=== PATIENT | male | born 1955 | race Caucasian/White ===

== ENCOUNTER 2018-09-16 07:03 | Day surgery (SDC) | payer MEDICARE, OTHER ==
[~2018-09-16] VITALS: Ht 177.8 cm; Wt 103.9 kg
[~2018-09-16 07:03] MED LIST: ALLOPURINOL100 MG PO; ATORVASTATIN CA10 MG PO; FAMOTIDINE40 MG PO; FLOMAX0.4 MG PO; LEVOTHYROXINE75 MCG PO; OXYCODONE HCL5 MG PO
[2018-09-16] MEDS ORDERED: ASPIR 8181 MG PO (07:21)
--- NOTE | 2018-09-16 09:03 | NUR ---
09/16/18 0903 Obdulia Vigil 0855 PT ARRIVED IN PACU SLEEPY WITH NO C/O'S. ABD SOFT.
--- NOTE | 2018-09-17 08:14 | OR ---
[facility] [address], [place] [address] Signed DATE OF OPERATION: 09/16/2018 SURGEON: Domingo Mckay MD PREOPERATIVE DIAGNOSES: 1. Gastroesophageal reflux disease. 2. Heartburn. 3. Esophageal dysphagia. 4. Screening. POSTOPERATIVE DIAGNOSES: 1. Reyu-jz-rahaiplk gastroduodenitis. 2. Small to moderate-sized hiatal hernia. 3. Mild distal esophagitis. 4. Unremarkable colonoscopy. PROCEDURES: 1. Esophagogastroduodenoscopy with CLOtest and biopsies of the pyloric bulb antrum and gastroesophageal junction. 2. Colonoscopy without biopsy. ESTIMATED BLOOD LOSS: None. INDICATIONS: Cherry is a 63-year-old gentleman, asked to see me for both upper and lower endoscopy. He has had trouble with acid reflux and heartburn. He has talked about mild esophageal dysphagia. He said bread in particular gives him trouble. He likes to drink a few glasses of gin every night, but he quit chewing snuff and smoking tobacco a number of years ago. He said he takes Rolaids about once a day. He tells me he has never had a screening colonoscopy. He has no lower GI complaints. He has no family history of colon cancer or polyps. In the office, I gave him pamphlets on both upper and lower endoscopy. We looked at those together along with the risks including, but not limited to gas bloating, crampy abdominal pain, bleeding, perforation, requiring surgery, and missed diagnosis. He also understands the need for IV conscious sedation. He expressed understanding and wished to proceed. DESCRIPTION OF PROCEDURE: Cherry was taken into our endoscopy suite and placed in the supine semi-recumbent position. The posterior oropharynx was anesthetized with lidocaine spray. A bite block Electronically Signed By: DOMINGO MCKAY MD 09/17/18 0814 PATIENT NAME: CHERRY PATTERSON OPERATIVE REPORT DATE OF : 51 REPORT #: [id number] PHYSICIAN: DOMINGO MCKAY MD PCP: JAVAN SINGLETON MD REPORT IS CONFIDENTIAL AND NOT TO BE RELEASED WITHOUT AUTHORIZATION [facility] [address], [place] [address] Signed was utilized for the case. He was given a total of 7 mg of Versed and 150 mcg of fentanyl to cover the both cases. The adult gastroscope had been introduced and advanced out into the third portion of the duodenum under direct visualization of camera without difficulty. The duodenum was unremarkable. However, the pyloric bulb in the stomach showed [id number] patchy erythematous changes consistent with inflammation. We saw no ulcerations in the bulb of the stomach. We took biopsies of the pyloric bulb and the stomach for pathologic review. We took a biopsy of the antrum for CLOtest. Upon retroflexion of scope, he does have a small to moderate-sized hiatal hernia. No gastric or esophageal varices. No Veronica-Arrington tear. No Laurent ulcer. The scope was withdrawn up to the GE junction, which was compliant without stricture. However, he does have fmhk-vp-[id number] disruption to his Z-line consistent with mild distal esophagitis. No obvious Martinez mucosa. We took several biopsies along the Z-line for pathologic review. The middle and upper esophagus were unremarkable. After this, the gas was suctioned out. The gastroscope removed. Cherry tolerated the procedure quite well. Cherry was then rotated into the left lateral decubitus position. He was maintained on IV sedation with Versed and fentanyl. A digital rectal exam was performed, and he does have some induration to the prostate. No obvious dominant nodule. The adult colonoscope was introduced and advanced all around into the cecum under direct visualization camera without difficulty. He had just a little bit of liquid bilious stool. That was suctioned out. The scope was slowly withdrawn. We found no pathology throughout the entire colon or rectum. He has very minimal internal hemorrhoid tissue. After this, the gas was suctioned out and colonoscope removed. Cherry tolerated the lower endoscopy quite well. RECOMMENDATIONS: Cherry will follow up my office in 7 to 14 days to review his results. Domingo Mckay MD ALB/MODL /[id number] cc: Domingo Mckay MD Electronically Signed By: DOMINGO MCKAY MD 09/17/18 0814 PATIENT NAME: CHERRY PATTERSON OPERATIVE REPORT DATE OF : 51 REPORT #: [id number] PHYSICIAN: DOMINGO MCKAY MD PCP: JAVAN SINGLETON MD REPORT IS CONFIDENTIAL AND NOT TO BE RELEASED WITHOUT AUTHORIZATION [address] [address] Signed Javan Singleton MD Copies: DOMINGO MCKAY MD, MALCOLM MD ~ Electronically Signed By: DOMINGO MCKAY MD 09/17/18 0814 PATIENT NAME: CHERRY PATTERSON OPERATIVE REPORT DATE OF : 51 REPORT #: [id number] PHYSICIAN: DOMINGO MCKAY MD PCP: JAVAN SINGLETON MD REPORT IS CONFIDENTIAL AND NOT TO BE RELEASED WITHOUT AUTHORIZATION
== END 2018-09-16 09:30 | disposition home or self-care (01) ==
LOC: OPS 07:03 → DS 07:03 → OPS 08:15
PROVIDERS: Colon & Rectal Surgery
PROC: 0DB78ZX Excision of Stomach, Pylorus, Via Natural or Artificial Opening Endoscopic, Diagnostic (ICD-10-PCS; 2018-09-16)
PROC: 0DB48ZX Excision of Esophagogastric Junction, Via Natural or Artificial Opening Endoscopic, Diagnostic (ICD-10-PCS; 2018-09-16)
PROC: 0DJD8ZZ Inspection of Lower Intestinal Tract, Via Natural or Artificial Opening Endoscopic (ICD-10-PCS; principal; 2018-09-16 08:15)
PROC: 0DB98ZX Excision of Duodenum, Via Natural or Artificial Opening Endoscopic, Diagnostic (ICD-10-PCS; 2018-09-16 08:15)
DX: Z12.11 Encounter for screening for malignant neoplasm of colon (principal); K44.9 Diaphragmatic hernia without obstruction or gangrene; K21.0 Gastro-esophageal reflux disease with esophagitis; K29.50 Unspecified chronic gastritis without bleeding; K29.80 Duodenitis without bleeding; K22.70 Barrett's esophagus without dysplasia; Z87.891 Personal history of nicotine dependence; Z79.82 Long term (current) use of aspirin; Z79.899 Other long term (current) drug therapy
CPT/HCPCS: 43239; G0121; 86677; 99153; G0500; J2250; J3010; J7120

== ENCOUNTER 2020-12-17 10:06 | Emergency (ER) | payer MEDICARE, OTHER ==
[~2020-12-17] VITALS: Ht 177.8 cm; Wt 98.9 kg
[~2020-12-17 10:06] MED LIST changes: +ASPIR 8181 MG PO
== END 2020-12-17 11:30 | disposition home or self-care (01) ==
LOC: ED 10:06
DX: S01.01XA Laceration without foreign body of scalp, initial encounter (principal); W01.10XA Fall on same level from slipping, tripping and stumbling with subsequent striking against unspecified object, initial encounter; Z23 Encounter for immunization; M10.9 Gout, unspecified; Z79.899 Other long term (current) drug therapy; Z79.82 Long term (current) use of aspirin
CPT/HCPCS: 12002; 90471; 90715; 99282-25